=== PATIENT | female | born 1930 | race Caucasian/White ===

== ENCOUNTER 2016-11-25 13:44 | Emergency (ER) | payer MEDICARE ==
[2016-11-25 13:55] VITALS: BP 155/76
--- NOTE | 2016-11-25 14:29 | ED Physician Documentation ---
PD HPI LOWER EXT INJURY - Stated complaint Stated Complaint: L ANKLE PX - Chief complaint Chief Complaint: Ext Problem - History obtained from History obtained from: Patient - History of Present Illness PD HPI LOW EXT INJURY LOCATION: Left (Had a slip and fall last night injuring her left ankle. It inverted on her. No other injuries. She is unable to walk or bear weight.) Review of Systems Musculoskeletal: denies: Neck pain, Back pain Neurologic: denies: Headache, Head injury, LOC Psychiatric: reports: Reviewed and negative PD PAST MEDICAL HISTORY - Past Medical History Musculoskeletal: Osteoarthritis, Chronic back pain - Past Surgical History Ortho: Knee replacement /FRONT OFFICE HELP: Hysterectomy Derm: Skin grafts - Present Medications Home Medications: Ambulatory Orders Medication Instructions Recorded Confirmed Knee Scooter 1 unit TD ONCE #1 11/25/16 - Allergies Allergies/Adverse Reactions: Allergies Allergy/AdvReac Type Severity Reaction Status Date / Time No Known Drug Allergies Allergy Verified 11/25/16 13:55 PD ED PE NORMAL - Vitals Vital signs reviewed: Yes - General General: Alert and oriented X 3, No acute distress - Neck Neck: No bony TTP - Extremities Extremities: Other (Focally tender over the lateral malleolus of the left ankle , no deformity.) - Neuro Neuro: Alert and oriented X 3, Normal speech - Psych Psych: Normal mood, Normal affect Results - Vitals Vitals: Vital Signs - 24 hr 11/25/16 13:50 Temperature 36.3 C L Heart Rate 82 Respiratory 17 Rate Blood Pressure 155/76 H O2 Saturation 99 Oxygen O2 Source Room air - Rads (name of study) L ankle 3v Radiology: EMP read contemporaneously (Lateral malleolus frx) Procedures - Splint (location) Left leg Splint applied by: Tech Type of splint: Fiberglass, Short leg, Posterior Other: Patient tolerated well, No complications, Neurovascular intact, Crutches provided Departure - Departure Disposition: 01 Home, Self Care Clinical Impression: Fracture of distal end of fibula Qualifiers: Encounter type: initial encounter Fracture type: closed Fracture morphology: unspecified fracture morphology Laterality: left Qualified Code(s): S82.832A - Other fracture of upper and lower end of left fibula, initial encounter for closed fracture Condition: Good Record reviewed to determine appropriate education?: Yes Instructions: ED Fx Lower Ext Follow-Up: [facility] [Provider Group] - Within 1 week Prescriptions: Knee Scooter 1 unit TD ONCE #1 Comments: Your blood pressure was elevated today on check into the emergency department. This does not mean that you have hypertension, it is a common phenomenon to come to the emergency department and have elevated blood pressure. I recommend that she see her primary care physician within the week to have it rechecked when you are feeling better.
--- NOTE | 2016-11-25 14:32 | XRAY Preliminary Report ---
Exam: XR Ankle 3 View LT IMPRESSION: Lateral malleolar fracture. [facility] SITE ID: [id number]
--- NOTE | 2016-11-25 14:44 | XRAY Report ---
EXAM: LEFT ANKLE RADIOGRAPHY EXAM DATE: 11/25/2016 02:11 PM. CLINICAL HISTORY: Lateral pain and swelling after a fall. COMPARISON: None. TECHNIQUE: 3 views. FINDINGS: Bones: Transverse linear lucency lateral malleolus, 6 mm inferior to the talar dome. Joints: Normal. No effusion. No subluxations. The ankle mortise is normally aligned. Soft Tissues: Marked edema at the fracture site. IMPRESSION: Lateral malleolar fracture. [facility] Referring Provider Line: [phone] SITE ID: [id number]
== END 2016-11-25 14:35 | disposition home or self-care (01) ==
LOC: ED 13:44
DX: S82.62XA Displaced fracture of lateral malleolus of left fibula, initial encounter for closed fracture (principal); W01.0XXA Fall on same level from slipping, tripping and stumbling without subsequent striking against object, initial encounter; Y92.019 Unspecified place in single-family (private) house as the place of occurrence of the external cause; M19.90 Unspecified osteoarthritis, unspecified site; R03.0 Elevated blood-pressure reading, without diagnosis of hypertension
CPT/HCPCS: 29515; 99283

== ENCOUNTER 2017-08-17 08:00 | Outpatient (CLI) | payer MEDICARE | END 2017-08-17 08:01 | disposition home or self-care (01) | LOC: LAB.N 08:00 | PROVIDERS: ATTEND Internal Medicine | DX: E03.9 Hypothyroidism, unspecified (principal) | CPT/HCPCS: 36415; 84443 ==